=== PATIENT | male | born 1990 ===

== ENCOUNTER 2017-02-08 22:03 | Emergency (ER) | payer SELFPAY ==
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
--- NOTE | 2017-02-08 23:03 | ED ORDER SUMMARY ---
..... Patient: FREDDY FORTUNE OrderSheet [facility] VisitID: [id number] [address] [place] [address] 26y, M Registration Date/Time: 02/08/2017 ORDER SHEET Weight: 65.7 kg (stated) Allergies: Penicillin GENERAL ORDERS: Shoulder 2V or more Left (Left AC tenderness) Urgent (22:13 02/08/2017 Christina HICKEY) (Ack 22:16 AMcQuoid ER Tech1) (22:22 HSoul) MEDICATION ORDERS: IV FLUIDS: ORDER SHEET NOTES: [Electronically signed by Bruna Cobian (04:01 02/09/2017)] [Electronically signed by Boris Ruiz DO (07:33 02/09/2017)] [Electronically locked/signed by Bruna Cobian (04:01 02/09/2017)]
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
--- NOTE | 2017-02-08 23:03 | ED ORDER SUMMARY ---
..... Patient: FREDDY FORTUNE OrderSheet [facility] VisitID: [id number] [address] [place] [address] 26y, M Registration Date/Time: 02/08/2017 ORDER SHEET Weight: 65.7 kg (stated) Allergies: Penicillin GENERAL ORDERS: Shoulder 2V or more Left (Left AC tenderness) Urgent (22:13 02/08/2017 Christina HICKEY) (Ack 22:16 AMcQuoid ER Tech1) (22:22 HSoul) MEDICATION ORDERS: IV FLUIDS: ORDER SHEET NOTES: [Electronically signed by Bruna Cobian (04:01 02/09/2017)] [Electronically signed by Boris Ruiz DO (07:33 02/09/2017)] [Electronically locked/signed by Bruna Cobian (04:01 02/09/2017)]
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
--- NOTE | 2017-02-08 23:19 | DIAGNOSTIC IMAGING REPORT ---
PROCEDURE: XR SHOULDER 2 OR MORE VW-LEFT INDICATION: TRAUMA/INJURY TECHNIQUE: Three views. COMPARISON: None. FINDINGS: No fracture or dislocation. Mild widening of the AC joint. Soft tissues are unremarkable. IMPRESSION: 1. Widening of the left AC joint suspicious for grade 1 AC joint separation
--- NOTE | 2017-02-09 07:33 | ED MED RECONCILIATION SUMMARY ---
Patient: FREDDY FORTUNE Medication Reconciliation Report [facility] VisitID: [id number] [address] [place] [address] 26y, M Registration Date/Time: 02/08/2017 Weight: 65.7 kg Height/Length: 64 in. BMI: 24.9 ALLERGIES: Penicillin The patient's Home Medications are listed below: NONE. The source(s) of the original Home Medication information: patient The following Medications were given to the patient in the Emergency Department: None. The following Medications were prescribed to the patient: Acetaminophen (available over the counter): take according to label instructions. -- Boris Ruiz DO Hydrocodone/APAP 5mg / 325mg: take 1-2 orally every 6 hours as needed for pain. Dispense ten (10). No refill. -- Boris Ruiz DO Ibuprofen 600mg tablets: take 1 tablet orally every 8 hours as needed for pain. Dispense thirty (30). No refills. -- Boris Ruiz DO
--- NOTE | 2017-02-09 07:33 | ED DISCHARGE INSTRUCTIONS ---
Patient: FREDDY FORTUNE General Instructions [facility] VisitID: [id number] [place] [address] 26y, M Registration Date/Time: 02/08/2017 Type I separation of the left AC joint. INSTRUCTIONS Apply ice. Elevate affected areas above chest level. Do not work for three days. (Gentle range of motion exercises). Warnings: SEDATIVE MEDICATION: You were given sedative medication during your visit. Do not drive or operate dangerous machinery. CONTROLLED SUBSTANCE WARNINGS. GENERAL WARNINGS: Return or contact your physician immediately if your condition worsens or changes unexpectedly, if not improving as expected, or if other problems arise. Prescription Medications: Hydrocodone/APAP 5mg / 325mg: take 1-2 orally every 6 hours as needed for pain. Dispense ten (10). No refill. Ibuprofen 600mg tablets: take 1 tablet orally every 8 hours as needed for pain. Dispense thirty (30). No refills. OTC Medications: Acetaminophen (available over the counter): take according to label instructions. Follow-up: Follow up with your doctor in about five days. Follow up with an orthopedic surgeon- as recommended by your primary care physician. Follow-up with: [facility], , , [address] [place] [address] Follow up in about five days. ADDITIONAL INFORMATION Sprain, A-C Joint The A-C JOINT holds the collar bone (clavicle) to the shoulder. A sprain of this joint is a tearing of the ligaments that hold the bones together. The tear may be partial or complete. An A-C sprain will take about 36 weeks to heal, depending on how severe it is. A "complete A-C ligament tear" (also called "A-C separation") will allow the collar bone to rise up, causing a noticeable bump on the shoulder top. Since the ligament heals in this position, the bump is permanent. It is possible to have surgery to correct the appearance, although normal shoulder function will return even without surgery. This injury is usually treated with a sling or "shoulder immobilizer". Once healed, you can expect full recovery of shoulder function. Home care The following guidelines will help you care for your sprain at home: Use the sling when awake until your next appointment. If the sling becomes loose, adjust it so that your forearm is level with the ground, and the shoulder feels well supported. You may remove the sling to bathe and remove it at night to sleep. Apply an ice pack (ice cubes in a plastic bag, wrapped in a towel) over the injured area for 20 minutes every 12 hours the first day for pain relief. Continue this 34 times a day until the pain and swelling goes away. You may use acetaminophen or ibuprofen to control pain, unless another pain medicine was prescribed.If you have chronic liver or kidney disease or ever had a stomach ulcer or GI bleeding, talk with your doctor before using these medicines. Shoulder joints become stiff if left in a sling for too long. Range of motion exercises should usually be started within the first ten days after injury. Consult your doctor on what type of exercises to do and how soon to start. The sling may be removed to shower or bathe. Follow-up care Any X-rays you had today dont show any broken bones, breaks, or fractures. Sometimes fractures dont show up on the first X-ray. Bruises and sprains can sometimes hurt as much as a fracture. These injuries can take time to heal completely. If your symptoms dont improve or they get worse, talk with your doctor. You may need a repeat X-ray. When to seek medical care Get prompt medical attention if any of the following occur: Pain or swelling or bruising increases Fingers become cold, blue, numb or tingly Hydrocodone Bitartrate, Acetaminophen Oral tablet What is this medicine? ACETAMINOPHEN; HYDROCODONE (a set a BENJAMIN suellen fen; nicole droe KOE done) is a pain reliever. It is used to treat mild to moderate pain. How should I use this medicine? Take this medicine by mouth. Swallow it with a full glass of water. Follow the directions on the prescription label. If the medicine upsets your stomach, take the medicine with food or milk. Do not take more than you are told to take. Talk to your sort line worker regarding the use of this medicine in children. This medicine is not approved for use in children. What side effects may I notice from receiving this medicine? Side effects that you should report to your doctor or health rn intensive care unit as soon as possible: allergic reactions like skin rash, itching or hives, swelling of the face, lips, or tongue breathing problems confusion feeling faint or lightheaded, falls stomach pain yellowing of the eyes or skin Side effects that usually do not require medical attention (report to your doctor or health rn intensive care unit if they continue or are bothersome): nausea, vomiting stomach upset What may interact with this medicine? alcohol antihistamines isoniazid medicines for depression, anxiety, or psychotic disturbances medicines for sleep muscle relaxants naltrexone narcotic medicines (opiates) for pain phenobarbital ritonavir tramadol What if I miss a dose? If you miss a dose, take it as soon as you can. If it is almost time for your next dose, take only that dose. Do not take double or extra doses. Where should I keep my medicine? Keep out of the reach of children. This medicine can be abused. Keep your medicine in a safe place to protect it from theft. Do not share this medicine with anyone. Selling or giving away this medicine is dangerous and against the law. Store at room temperature between 15 and 30 degrees C (59 and 86 degrees F). Protect from light. Keep container tightly closed. Throw away any unused medicine after the expiration date. Discard unused medicine and used packaging carefully. Pets and children can be harmed if they find used or lost packages. What should I tell my health care provider before I take this medicine? They need to know if you have any of these conditions: brain tumor Crohn's disease, inflammatory bowel disease, or ulcerative colitis drink more than 3 alcohol-containing drinks per day drug abuse or addiction head injury heart or circulation problems kidney disease or problems going to the bathroom liver disease lung disease, asthma, or breathing problems an unusual or allergic reaction to acetaminophen, hydrocodone, other opioid analgesics, other medicines, foods, dyes, or preservatives or trying to get breast-feeding What should I watch for while using this medicine? Tell your doctor or health rn intensive care unit if your pain does not go away, if it gets worse, or if you have new or a different type of pain. You may develop tolerance to the medicine. Tolerance means that you will need a higher dose of the medicine for pain relief. Tolerance is normal and is expected if you take the medicine for a long time. Do not suddenly stop taking your medicine because you may develop a severe reaction. Your body becomes used to the medicine. This does NOT mean you are addicted. Addiction is a behavior related to getting and using a drug for a non-medical reason. If you have pain, you have a medical reason to take pain medicine. Your doctor will tell you how much medicine to take. If your doctor wants you to stop the medicine, the dose will be slowly lowered over time to avoid any side effects. You may get drowsy or dizzy when you first start taking the medicine or change doses. Do not drive, use machinery, or do anything that may be dangerous until you know how the medicine affects you. Stand or sit up slowly. There are different types of narcotic medicines (opiates) for pain. If you take more than one type at the same time, you may have more side effects. Give your health care provider a list of all medicines you use. Your doctor will tell you how much medicine to take. Do not take more medicine than directed. Call emergency for help if you have problems breathing. The medicine will cause constipation. Try to have a bowel movement at least every 2 to 3 days. If you do not have a bowel movement for 3 days, call your doctor or health rn intensive care unit. Too much acetaminophen can be very dangerous. Do not take Tylenol (acetaminophen) or medicines that contain acetaminophen with this medicine. Many non-prescription medicines contain acetaminophen. Always read the labels carefully. Ibuprofen Oral tablet What is this medicine? IBUPROFEN (eye BYOO proe fen) is a non-steroidal anti-inflammatory drug (NSAID). It is used for dental pain, fever, headaches or migraines, osteoarthritis, rheumatoid arthritis, or painful monthly periods. It can also relieve minor aches and pains caused by a cold, flu, or sore throat. How should I use this medicine? Take this medicine by mouth with a glass of water. Follow the directions on the prescription label. Take this medicine with food if your stomach gets upset. Try to not lie down for at least 10 minutes after you take the medicine. Take your medicine at regular intervals. Do not take your medicine more often than directed. A special MedGuide will be given to you by the pharmacist with each prescription and refill. Be sure to read this information carefully each time. Talk to your sort line worker regarding the use of this medicine in children. Special care may be needed. What side effects may I notice from receiving this medicine? Side effects that you should report to your doctor or health rn intensive care unit as soon as possible: allergic reactions like skin rash, itching or hives, swelling of the face, lips, or tongue black or bloody stools, blood in the urine or in vomit breathing problems changes in vision chest pain general ill feeling or flu-like symptoms nausea or vomiting redness, blistering, peeling or loosening of the skin, including inside the mouth slurred speech or weakness on one side of the body stomach pain unexplained weight gain or swelling unusually weak or tired yellowing of eyes or skin Side effects that usually do not require medical attention (report to your doctor or health rn intensive care unit if they continue or are bothersome): constipation or diarrhea dizziness gas or heartburn stomach upset What may interact with this medicine? Do not take this medicine with any of the following medications: cidofovir ketorolac methotrexate pemetrexed This medicine may also interact with the following medications: alcohol aspirin diuretics lithium other drugs for inflammation like prednisone warfarin What if I miss a dose? If you miss a dose, take it as soon as you can. If it is almost time for your next dose, take only that dose. Do not take double or extra doses. Where should I keep my medicine? Keep out of the reach of children. Store at room temperature between 15 and 30 degrees C (59 and 86 degrees F). Keep container tightly closed. Throw away any unused medicine after the expiration date. What should I tell my health care provider before I take this medicine? They need to know if you have any of these conditions: asthma cigarette smoker drink more than 3 alcohol containing drinks a day heart disease or circulation problems such as heart failure or leg edema (fluid retention) high blood pressure kidney disease liver disease stomach bleeding or ulcers an unusual or allergic reaction to ibuprofen, aspirin, other NSAIDS, other medicines, foods, dyes, or preservatives or trying to get breast-feeding What should I watch for while using this medicine? Tell your doctor or healthcare professional if your symptoms do not start to get better or if they get worse. This medicine does not prevent heart attack or stroke. In fact, this medicine may increase the chance of a heart attack or stroke. The chance may increase with longer use of this medicine and in people who have heart disease. If you take aspirin to prevent heart attack or stroke, talk with your doctor or health rn intensive care unit. Do not take other medicines that contain aspirin, ibuprofen, or naproxen with this medicine. Side effects such as stomach upset, nausea, or ulcers may be more likely to occur. Many medicines available without a prescription should not be taken with this medicine. This medicine can cause ulcers and bleeding in the stomach and intestines at any time during treatment. Ulcers and bleeding can happen without warning symptoms and can cause . To reduce your risk, do not smoke cigarettes or drink alcohol while you are taking this medicine. You may get drowsy or dizzy. Do not drive, use machinery, or do anything that needs mental alertness until you know how this medicine affects you. Do not stand or sit up quickly, especially if you are an older patient. This reduces the risk of dizzy or fainting spells. This medicine can cause you to bleed more easily. Try to avoid damage to your teeth and gums when you brush or floss your teeth. Acetaminophen Oral tablet What is this medicine? ACETAMINOPHEN (a set a BENJAMIN suellen fen) is a pain reliever. It is used to treat mild pain and fever. How should I use this medicine? Take this medicine by mouth with a glass of water. Follow the directions on the package or prescription label. Take your medicine at regular intervals. Do not take your medicine more often than directed. Talk to your sort line worker regarding the use of this medicine in children. While this drug may be prescribed for children as young as 6 years of age for selected conditions, precautions do apply. What side effects may I notice from receiving this medicine? Side effects that you should report to your doctor or health rn intensive care unit as soon as possible: allergic reactions like skin rash, itching or hives, swelling of the face, lips, or tongue breathing problems fever or sore throat redness, blistering, peeling or loosening of the skin, including inside the mouth trouble passing urine or change in the amount of urine unusual bleeding or bruising unusually weak or tired yellowing of the eyes or skin Side effects that usually do not require medical attention (report to your doctor or health rn intensive care unit if they continue or are bothersome): headache nausea, stomach upset What may interact with this medicine? alcohol imatinib isoniazid other medicines with acetaminophen What if I miss a dose? If you miss a dose, take it as soon as you can. If it is almost time for your next dose, take only that dose. Do not take double or extra doses. Where should I keep my medicine? Keep out of reach of children. Store at room temperature between 20 and 25 degrees C (68 and 77 degrees F). Protect from moisture and heat. Throw away any unused medicine after the expiration date. What should I tell my health care provider before I take this medicine? They need to know if you have any of these conditions: if you frequently drink alcohol containing drinks liver disease an unusual or allergic reaction to acetaminophen, other medicines, foods, dyes or preservatives or trying to get breast-feeding What should I watch for while using this medicine? Tell your doctor or health rn intensive care unit if the pain lasts more than 10 days (5 days for children), if it gets worse, or if there is a new or different kind of pain. Also, check with your doctor if a fever lasts for more than 3 days. Do not take other medicines that contain acetaminophen with this medicine. Always read labels carefully. If you have questions, ask your doctor or pharmacist. If you take too much acetaminophen get medical help right away. Too much acetaminophen can be very dangerous and cause liver damage. Even if you do not have symptoms, it is important to get help right away. You have been given the following additional information: AC Joint Sprain Hydrocodone Bitartrate, Acetaminophen Oral tablet Ibuprofen Oral tablet Acetaminophen Oral tablet Do not work for three days. (Electronically signed by Boris Ruiz DO 02/09/2017 7:33)
--- NOTE | 2017-02-09 07:33 | ED DISCHARGE INSTRUCTIONS ---
Patient: FREDDY FORTUNE General Instructions [facility] VisitID: [id number] [place] [address] 26y, M Registration Date/Time: 02/08/2017 Type I separation of the left AC joint. INSTRUCTIONS Apply ice. Elevate affected areas above chest level. Do not work for three days. (Gentle range of motion exercises). Warnings: SEDATIVE MEDICATION: You were given sedative medication during your visit. Do not drive or operate dangerous machinery. CONTROLLED SUBSTANCE WARNINGS. GENERAL WARNINGS: Return or contact your physician immediately if your condition worsens or changes unexpectedly, if not improving as expected, or if other problems arise. Prescription Medications: Hydrocodone/APAP 5mg / 325mg: take 1-2 orally every 6 hours as needed for pain. Dispense ten (10). No refill. Ibuprofen 600mg tablets: take 1 tablet orally every 8 hours as needed for pain. Dispense thirty (30). No refills. OTC Medications: Acetaminophen (available over the counter): take according to label instructions. Follow-up: Follow up with your doctor in about five days. Follow up with an orthopedic surgeon- as recommended by your primary care physician. Follow-up with: [facility], , , [address] [place] [address] Follow up in about five days. ADDITIONAL INFORMATION Sprain, A-C Joint The A-C JOINT holds the collar bone (clavicle) to the shoulder. A sprain of this joint is a tearing of the ligaments that hold the bones together. The tear may be partial or complete. An A-C sprain will take about 36 weeks to heal, depending on how severe it is. A "complete A-C ligament tear" (also called "A-C separation") will allow the collar bone to rise up, causing a noticeable bump on the shoulder top. Since the ligament heals in this position, the bump is permanent. It is possible to have surgery to correct the appearance, although normal shoulder function will return even without surgery. This injury is usually treated with a sling or "shoulder immobilizer". Once healed, you can expect full recovery of shoulder function. Home care The following guidelines will help you care for your sprain at home: Use the sling when awake until your next appointment. If the sling becomes loose, adjust it so that your forearm is level with the ground, and the shoulder feels well supported. You may remove the sling to bathe and remove it at night to sleep. Apply an ice pack (ice cubes in a plastic bag, wrapped in a towel) over the injured area for 20 minutes every 12 hours the first day for pain relief. Continue this 34 times a day until the pain and swelling goes away. You may use acetaminophen or ibuprofen to control pain, unless another pain medicine was prescribed.If you have chronic liver or kidney disease or ever had a stomach ulcer or GI bleeding, talk with your doctor before using these medicines. Shoulder joints become stiff if left in a sling for too long. Range of motion exercises should usually be started within the first ten days after injury. Consult your doctor on what type of exercises to do and how soon to start. The sling may be removed to shower or bathe. Follow-up care Any X-rays you had today dont show any broken bones, breaks, or fractures. Sometimes fractures dont show up on the first X-ray. Bruises and sprains can sometimes hurt as much as a fracture. These injuries can take time to heal completely. If your symptoms dont improve or they get worse, talk with your doctor. You may need a repeat X-ray. When to seek medical care Get prompt medical attention if any of the following occur: Pain or swelling or bruising increases Fingers become cold, blue, numb or tingly Hydrocodone Bitartrate, Acetaminophen Oral tablet What is this medicine? ACETAMINOPHEN; HYDROCODONE (a set a BENJAMIN suellen fen; nicole droe KOE done) is a pain reliever. It is used to treat mild to moderate pain. How should I use this medicine? Take this medicine by mouth. Swallow it with a full glass of water. Follow the directions on the prescription label. If the medicine upsets your stomach, take the medicine with food or milk. Do not take more than you are told to take. Talk to your forming fixer regarding the use of this medicine in children. This medicine is not approved for use in children. What side effects may I notice from receiving this medicine? Side effects that you should report to your doctor or health director of health care marketing as soon as possible: allergic reactions like skin rash, itching or hives, swelling of the face, lips, or tongue breathing problems confusion feeling faint or lightheaded, falls stomach pain yellowing of the eyes or skin Side effects that usually do not require medical attention (report to your doctor or health director of health care marketing if they continue or are bothersome): nausea, vomiting stomach upset What may interact with this medicine? alcohol antihistamines isoniazid medicines for depression, anxiety, or psychotic disturbances medicines for sleep muscle relaxants naltrexone narcotic medicines (opiates) for pain phenobarbital ritonavir tramadol What if I miss a dose? If you miss a dose, take it as soon as you can. If it is almost time for your next dose, take only that dose. Do not take double or extra doses. Where should I keep my medicine? Keep out of the reach of children. This medicine can be abused. Keep your medicine in a safe place to protect it from theft. Do not share this medicine with anyone. Selling or giving away this medicine is dangerous and against the law. Store at room temperature between 15 and 30 degrees C (59 and 86 degrees F). Protect from light. Keep container tightly closed. Throw away any unused medicine after the expiration date. Discard unused medicine and used packaging carefully. Pets and children can be harmed if they find used or lost packages. What should I tell my health care provider before I take this medicine? They need to know if you have any of these conditions: brain tumor Crohn's disease, inflammatory bowel disease, or ulcerative colitis drink more than 3 alcohol-containing drinks per day drug abuse or addiction head injury heart or circulation problems kidney disease or problems going to the bathroom liver disease lung disease, asthma, or breathing problems an unusual or allergic reaction to acetaminophen, hydrocodone, other opioid analgesics, other medicines, foods, dyes, or preservatives or trying to get breast-feeding What should I watch for while using this medicine? Tell your doctor or health director of health care marketing if your pain does not go away, if it gets worse, or if you have new or a different type of pain. You may develop tolerance to the medicine. Tolerance means that you will need a higher dose of the medicine for pain relief. Tolerance is normal and is expected if you take the medicine for a long time. Do not suddenly stop taking your medicine because you may develop a severe reaction. Your body becomes used to the medicine. This does NOT mean you are addicted. Addiction is a behavior related to getting and using a drug for a non-medical reason. If you have pain, you have a medical reason to take pain medicine. Your doctor will tell you how much medicine to take. If your doctor wants you to stop the medicine, the dose will be slowly lowered over time to avoid any side effects. You may get drowsy or dizzy when you first start taking the medicine or change doses. Do not drive, use machinery, or do anything that may be dangerous until you know how the medicine affects you. Stand or sit up slowly. There are different types of narcotic medicines (opiates) for pain. If you take more than one type at the same time, you may have more side effects. Give your health care provider a list of all medicines you use. Your doctor will tell you how much medicine to take. Do not take more medicine than directed. Call emergency for help if you have problems breathing. The medicine will cause constipation. Try to have a bowel movement at least every 2 to 3 days. If you do not have a bowel movement for 3 days, call your doctor or health director of health care marketing. Too much acetaminophen can be very dangerous. Do not take Tylenol (acetaminophen) or medicines that contain acetaminophen with this medicine. Many non-prescription medicines contain acetaminophen. Always read the labels carefully. Ibuprofen Oral tablet What is this medicine? IBUPROFEN (eye BYOO proe fen) is a non-steroidal anti-inflammatory drug (NSAID). It is used for dental pain, fever, headaches or migraines, osteoarthritis, rheumatoid arthritis, or painful monthly periods. It can also relieve minor aches and pains caused by a cold, flu, or sore throat. How should I use this medicine? Take this medicine by mouth with a glass of water. Follow the directions on the prescription label. Take this medicine with food if your stomach gets upset. Try to not lie down for at least 10 minutes after you take the medicine. Take your medicine at regular intervals. Do not take your medicine more often than directed. A special MedGuide will be given to you by the pharmacist with each prescription and refill. Be sure to read this information carefully each time. Talk to your forming fixer regarding the use of this medicine in children. Special care may be needed. What side effects may I notice from receiving this medicine? Side effects that you should report to your doctor or health director of health care marketing as soon as possible: allergic reactions like skin rash, itching or hives, swelling of the face, lips, or tongue black or bloody stools, blood in the urine or in vomit breathing problems changes in vision chest pain general ill feeling or flu-like symptoms nausea or vomiting redness, blistering, peeling or loosening of the skin, including inside the mouth slurred speech or weakness on one side of the body stomach pain unexplained weight gain or swelling unusually weak or tired yellowing of eyes or skin Side effects that usually do not require medical attention (report to your doctor or health director of health care marketing if they continue or are bothersome): constipation or diarrhea dizziness gas or heartburn stomach upset What may interact with this medicine? Do not take this medicine with any of the following medications: cidofovir ketorolac methotrexate pemetrexed This medicine may also interact with the following medications: alcohol aspirin diuretics lithium other drugs for inflammation like prednisone warfarin What if I miss a dose? If you miss a dose, take it as soon as you can. If it is almost time for your next dose, take only that dose. Do not take double or extra doses. Where should I keep my medicine? Keep out of the reach of children. Store at room temperature between 15 and 30 degrees C (59 and 86 degrees F). Keep container tightly closed. Throw away any unused medicine after the expiration date. What should I tell my health care provider before I take this medicine? They need to know if you have any of these conditions: asthma cigarette smoker drink more than 3 alcohol containing drinks a day heart disease or circulation problems such as heart failure or leg edema (fluid retention) high blood pressure kidney disease liver disease stomach bleeding or ulcers an unusual or allergic reaction to ibuprofen, aspirin, other NSAIDS, other medicines, foods, dyes, or preservatives or trying to get breast-feeding What should I watch for while using this medicine? Tell your doctor or healthcare professional if your symptoms do not start to get better or if they get worse. This medicine does not prevent heart attack or stroke. In fact, this medicine may increase the chance of a heart attack or stroke. The chance may increase with longer use of this medicine and in people who have heart disease. If you take aspirin to prevent heart attack or stroke, talk with your doctor or health director of health care marketing. Do not take other medicines that contain aspirin, ibuprofen, or naproxen with this medicine. Side effects such as stomach upset, nausea, or ulcers may be more likely to occur. Many medicines available without a prescription should not be taken with this medicine. This medicine can cause ulcers and bleeding in the stomach and intestines at any time during treatment. Ulcers and bleeding can happen without warning symptoms and can cause . To reduce your risk, do not smoke cigarettes or drink alcohol while you are taking this medicine. You may get drowsy or dizzy. Do not drive, use machinery, or do anything that needs mental alertness until you know how this medicine affects you. Do not stand or sit up quickly, especially if you are an older patient. This reduces the risk of dizzy or fainting spells. This medicine can cause you to bleed more easily. Try to avoid damage to your teeth and gums when you brush or floss your teeth. Acetaminophen Oral tablet What is this medicine? ACETAMINOPHEN (a set a BENJAMIN suellen fen) is a pain reliever. It is used to treat mild pain and fever. How should I use this medicine? Take this medicine by mouth with a glass of water. Follow the directions on the package or prescription label. Take your medicine at regular intervals. Do not take your medicine more often than directed. Talk to your forming fixer regarding the use of this medicine in children. While this drug may be prescribed for children as young as 6 years of age for selected conditions, precautions do apply. What side effects may I notice from receiving this medicine? Side effects that you should report to your doctor or health director of health care marketing as soon as possible: allergic reactions like skin rash, itching or hives, swelling of the face, lips, or tongue breathing problems fever or sore throat redness, blistering, peeling or loosening of the skin, including inside the mouth trouble passing urine or change in the amount of urine unusual bleeding or bruising unusually weak or tired yellowing of the eyes or skin Side effects that usually do not require medical attention (report to your doctor or health director of health care marketing if they continue or are bothersome): headache nausea, stomach upset What may interact with this medicine? alcohol imatinib isoniazid other medicines with acetaminophen What if I miss a dose? If you miss a dose, take it as soon as you can. If it is almost time for your next dose, take only that dose. Do not take double or extra doses. Where should I keep my medicine? Keep out of reach of children. Store at room temperature between 20 and 25 degrees C (68 and 77 degrees F). Protect from moisture and heat. Throw away any unused medicine after the expiration date. What should I tell my health care provider before I take this medicine? They need to know if you have any of these conditions: if you frequently drink alcohol containing drinks liver disease an unusual or allergic reaction to acetaminophen, other medicines, foods, dyes or preservatives or trying to get breast-feeding What should I watch for while using this medicine? Tell your doctor or health director of health care marketing if the pain lasts more than 10 days (5 days for children), if it gets worse, or if there is a new or different kind of pain. Also, check with your doctor if a fever lasts for more than 3 days. Do not take other medicines that contain acetaminophen with this medicine. Always read labels carefully. If you have questions, ask your doctor or pharmacist. If you take too much acetaminophen get medical help right away. Too much acetaminophen can be very dangerous and cause liver damage. Even if you do not have symptoms, it is important to get help right away. You have been given the following additional information: AC Joint Sprain Hydrocodone Bitartrate, Acetaminophen Oral tablet Ibuprofen Oral tablet Acetaminophen Oral tablet Do not work for three days. (Electronically signed by Boris Ruiz DO 02/09/2017 7:33)
--- NOTE | 2017-02-09 07:33 | ED MAR SUMMARY ---
..... Medication Administration Record [facility] [address] [place], [place] [id number] Patient: FREDDY FORTUNE Visit ID: [id number] 26y, M Weight: 65.7 kg Height/Length: 64 in BMI: 24.9 ALLERGIES: Penicillin
--- NOTE | 2017-02-09 07:33 | ED MAR SUMMARY ---
..... Medication Administration Record [facility] [address] [place], [place] [id number] Patient: FREDDY FORTUNE Visit ID: [id number] 26y, M Weight: 65.7 kg Height/Length: 64 in BMI: 24.9 ALLERGIES: Penicillin
--- NOTE | 2017-02-09 07:33 | ED MED RECONCILIATION SUMMARY ---
Patient: FREDDY FORTUNE Medication Reconciliation Report [facility] VisitID: [id number] [address] [place] [address] 26y, M Registration Date/Time: 02/08/2017 Weight: 65.7 kg Height/Length: 64 in. BMI: 24.9 ALLERGIES: Penicillin The patient's Home Medications are listed below: NONE. The source(s) of the original Home Medication information: patient The following Medications were given to the patient in the Emergency Department: None. The following Medications were prescribed to the patient: Acetaminophen (available over the counter): take according to label instructions. -- Boris Ruiz DO Hydrocodone/APAP 5mg / 325mg: take 1-2 orally every 6 hours as needed for pain. Dispense ten (10). No refill. -- Boris Ruiz DO Ibuprofen 600mg tablets: take 1 tablet orally every 8 hours as needed for pain. Dispense thirty (30). No refills. -- Boris Ruiz DO
== END 2017-02-08 23:10 | disposition home or self-care (01) ==
LOC: ED SRH 22:03
DX: S43.102A Unspecified dislocation of left acromioclavicular joint, initial encounter (principal); V00.131A Fall from skateboard, initial encounter; Y93.51 Activity, roller skating (inline) and skateboarding; Y92.410 Unspecified street and highway as the place of occurrence of the external cause; Y99.9 Unspecified external cause status

== ENCOUNTER 2017-02-28 10:18 | Emergency (ER) | payer OTHER ==
--- NOTE | 2017-02-28 14:47 | ED DISCHARGE INSTRUCTIONS ---
Patient: FREDDY FORTUNE General Instructions [facility] VisitID: [id number] [address] [place] [address] 26y, M Registration Date/Time: 02/28/2017 Acute viral gastroenteritis. INSTRUCTIONS Follow-up: Screening today revealed the patient's blood pressure to be in the normal range. (Electronically signed by Raul Owusu Dr. 02/28/2017 14:26)
--- NOTE | 2017-02-28 14:47 | ED MED RECONCILIATION SUMMARY ---
Patient: FREDDY FORTUNE Medication Reconciliation Report [facility] VisitID: [id number] [address] [place] [address] 26y, M Registration Date/Time: 02/28/2017 Weight: 63.5 kg Height/Length: 64 in. BMI: 24.0 ALLERGIES: Penicillin The patient's Home Medications are listed below: NONE. The source(s) of the original Home Medication information: Not obtained. The following Medications were given to the patient in the Emergency Department: IV NS IV Fluids bolus 0, then 1000 mL/hr, administered: 02/28/2017 11:30:00 AM Zofran [IVP] IVP 4 mg, administered: 02/28/2017 11:31:00 AM The following Medications were prescribed to the patient: None.
--- NOTE | 2017-02-28 14:47 | ED MED RECONCILIATION SUMMARY ---
Patient: FREDDY FORTUNE Medication Reconciliation Report [facility] VisitID: [id number] [address] [place] [address] 26y, M Registration Date/Time: 02/28/2017 Weight: 63.5 kg Height/Length: 64 in. BMI: 24.0 ALLERGIES: Penicillin The patient's Home Medications are listed below: NONE. The source(s) of the original Home Medication information: Not obtained. The following Medications were given to the patient in the Emergency Department: IV NS IV Fluids bolus 0, then 1000 mL/hr, administered: 02/28/2017 11:30:00 AM Zofran [IVP] IVP 4 mg, administered: 02/28/2017 11:31:00 AM The following Medications were prescribed to the patient: None.
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
--- NOTE | 2017-02-28 14:47 | ED ORDER SUMMARY ---
..... Patient: FREDDY FORTUNE OrderSheet [facility] VisitID: [id number] [address] [place] [address] 26y, M Registration Date/Time: 02/28/2017 ORDER SHEET Weight: 63.5 kg (stated) Allergies: Penicillin GENERAL ORDERS: CBC w Diff Urgent (10:48 02/28/2017 Jesse Vicente) (Ack 10:49 PWeiler ER Tech1) (11:29 JSvictor meck R.N.) CMP Urgent (10:48 02/28/2017 Jesse Vicente) (Ack 10:49 POORNIMAeithomas ER Tech1) (11:29 Grzegorzeck R.N.) UA-Culture if indicated Urgent (10:48 02/28/2017 Jesse Vicente) (Ack 10:49 POORNIMAeithomas ER Tech1) (13:55 Grzegorzeck R.N.) Amylase Urgent (10:48 02/28/2017 Jesse Vicente) (Ack 10:49 POORNIMAeithomas ER Tech1) (11:29 Grzegorzeck R.N.) Lipase Urgent (10:48 02/28/2017 Jesse Vicente) (Ack 10:49 Damián ER Tech1) (11:29 Grzegorzeck R.N.) Urine Drug Screen Urgent (10:48 02/28/2017 Jesse Vicente) (Ack 10:49 Damián ER Tech1) (13:54 Grzegorzeck R.N.) MEDICATION ORDERS: IV FLUIDS: IV NS : initial bolus none -, then 1000 mL/hr for X1 (NOW) (10:47 02/28/2017 Jesse Vicente) (11:30 Charlene R.N.) Zofran IV 4 mg (NOW) (10:48 02/28/2017 Jesse Vicente) (11:33 Rubi R.N.) ORDER SHEET NOTES: [Electronically signed by Raul Owusu Dr. (14:26 02/28/2017)] [Electronically signed by Jason Orozco R.N. (14:47 02/28/2017)] [Electronically locked/signed by Jason Orozco R.N. (14:47 02/28/2017)]
--- NOTE | 2017-02-28 14:47 | ED MAR SUMMARY ---
..... Medication Administration Record [facility] [address] [place] [address] Patient: FREDDY FORTUNE Visit ID: [id number] 26y, M Weight: 63.5 kg Height/Length: 64 in BMI: 24 ALLERGIES: Penicillin Start 11:30 02/28/2017 Zulay White R.N., Stop 12:30 02/28/2017 Jason Orozco R.N. Medication Administered: IV NS (SALINE), Dose: IV Fluids over 1 hour(s), Rate: 1000 mL/hr, Dispensed: 1000 mL bag, Site: #1 left AC. Medication Ordered: IV NS : initial bolus none -, then 1000 mL/hr for X1 (NOW). Given 11:31 02/28/2017 Jason Orozco R.N. Medication Administered: ZOFRAN [IVP] (ONDANSETRON HCL), Dose: 4 mg IVP over 1 minute(s), Site: #1 left AC. Medication Ordered: Zofran IV 4 mg (NOW).
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
--- NOTE | 2017-02-28 14:47 | ED ORDER SUMMARY ---
..... Patient: FREDDY FORTUNE OrderSheet [facility] VisitID: [id number] [address] [place] [address] 26y, M Registration Date/Time: 02/28/2017 ORDER SHEET Weight: 63.5 kg (stated) Allergies: Penicillin GENERAL ORDERS: CBC w Diff Urgent (10:48 02/28/2017 Jesse Vicente) (Ack 10:49 PWeiler ER Tech1) (11:29 JSvictor meck R.N.) CMP Urgent (10:48 02/28/2017 Jesse Vicente) (Ack 10:49 POORNIMAeithomas ER Tech1) (11:29 Grzegorzeck R.N.) UA-Culture if indicated Urgent (10:48 02/28/2017 Jesse Vicente) (Ack 10:49 POORNIMAeithomas ER Tech1) (13:55 Grzegorzeck R.N.) Amylase Urgent (10:48 02/28/2017 Jesse Vicente) (Ack 10:49 POORNIMAeithomas ER Tech1) (11:29 Grzegorzeck R.N.) Lipase Urgent (10:48 02/28/2017 Jesse Vicente) (Ack 10:49 Damián ER Tech1) (11:29 Grzegorzeck R.N.) Urine Drug Screen Urgent (10:48 02/28/2017 Jesse Vicente) (Ack 10:49 Damián ER Tech1) (13:54 Grzegorzeck R.N.) MEDICATION ORDERS: IV FLUIDS: IV NS : initial bolus none -, then 1000 mL/hr for X1 (NOW) (10:47 02/28/2017 Jesse Vicente) (11:30 Charlene R.N.) Zofran IV 4 mg (NOW) (10:48 02/28/2017 Jesse Vicente) (11:33 Rubi R.N.) ORDER SHEET NOTES: [Electronically signed by Raul Owusu Dr. (14:26 02/28/2017)] [Electronically signed by Jason Orozco R.N. (14:47 02/28/2017)] [Electronically locked/signed by Jason Orozco R.N. (14:47 02/28/2017)]
--- NOTE | 2017-02-28 14:47 | ED DISCHARGE INSTRUCTIONS ---
Patient: FREDDY FORTUNE General Instructions [facility] VisitID: [id number] [address] [place] [address] 26y, M Registration Date/Time: 02/28/2017 Acute viral gastroenteritis. INSTRUCTIONS Follow-up: Screening today revealed the patient's blood pressure to be in the normal range. (Electronically signed by Raul Owusu Dr. 02/28/2017 14:26)
--- NOTE | 2017-02-28 14:47 | ED MAR SUMMARY ---
..... Medication Administration Record [facility] [address] [place] [address] Patient: FREDDY FORTUNE Visit ID: [id number] 26y, M Weight: 63.5 kg Height/Length: 64 in BMI: 24 ALLERGIES: Penicillin Start 11:30 02/28/2017 Zulay White R.N., Stop 12:30 02/28/2017 Jason Orozco R.N. Medication Administered: IV NS (SALINE), Dose: IV Fluids over 1 hour(s), Rate: 1000 mL/hr, Dispensed: 1000 mL bag, Site: #1 left AC. Medication Ordered: IV NS : initial bolus none -, then 1000 mL/hr for X1 (NOW). Given 11:31 02/28/2017 Jason Orozco R.N. Medication Administered: ZOFRAN [IVP] (ONDANSETRON HCL), Dose: 4 mg IVP over 1 minute(s), Site: #1 left AC. Medication Ordered: Zofran IV 4 mg (NOW).
== END 2017-02-28 13:50 | disposition left against medical advice (07) ==
LOC: ED SRH 10:18
DX: A08.4 Viral intestinal infection, unspecified (principal); F17.200 Nicotine dependence, unspecified, uncomplicated; Z88.0 Allergy status to penicillin
CPT/HCPCS: 90004; 90100; 90939; 92235; 92530; 95059